=== PATIENT | female | born 1990 | race Caucasian/White ===

== ENCOUNTER → 2017-10-11 | Outpatient (CLI) | payer OTHER ==
[~2017-10-11] MED LIST: SINCALIDE 3 MCG/VIAL INJ ONE
--- NOTE | 2017-10-13 18:26 | Diagnostic Imaging Report ---
Hepatobiliary Scan with Gallbladder Ejection Fraction Clinical information: 27 F with chronic abdominal pain x 2 months Report: Following intravenous administration of 6.6 millicuries of Tc-[id number] mebrofenin, dynamic images of the abdomen in the anterior projection were obtained through 60 minutes. Sincalide (CCK analog) 1.5 micrograms was administered intravenously over 30 minutes with additional imaging for determination of gallbladder ejection fraction. Perfusion to the liver is normal. Extraction of tracer from the blood pool by the liver parenchyma is normal. Tracer is seen promptly within the biliary tract. The gallbladder begins to fill by 36 minutes post-injection of tracer and fills adequately. Tracer is seen in the small bowel by 10 minutes. The gallbladder ejection fraction with administration of sincalide is 90% (normal greater than 40%). Impression: 1. Filling of the gallbladder excludes the diagnosis of acute cystic duct obstruction/acute cholecystitis. 2. Normal gallbladder ejection fraction of 90% does not support the clinical diagnosis of chronic cholecystitis/gallbladder dyskinesia. Signed by: Dr. Molly Hernandez M.D. on 10/13/2017 6:22 PM
== END ==
LOC: NM 10:54
PROVIDERS: ATTEND Family Medicine
DX: R10.84 Generalized abdominal pain (principal)
CPT/HCPCS: 78227; 81025; A9537; J2805